=== PATIENT | female | born 1995 | race Caucasian/White ===

== ENCOUNTER 2020-06-24 01:50 | Inpatient (IN) | payer OTHER, SELFPAY ==
[2020-06-24] VITALS (203 sets, daily range): BP systolic 82–148; BP diastolic 49–115; PULSE 32–171; RESP 16; TEMP 36.3–37.1; O2SAT 86–100; BMI 44.8
--- NOTE | 2020-06-24 01:50 | LDADM ---
This patient, Tari Jaramillo, was admitted to Labor/Delivery/Recovery 105 on 06/24/20 at 01:50. Plans for labor, pain management and were discussed with patient. Patient/family oriented to hospital policies and general routines including ID bracelet, bed and alarms, visiting hours, pain management, procedures, bathroom and other care routines, personal items, smoking policy, room service/diet and guest tray routines, infant security routines, and visiting hours. Patient/Family are encouraged to report perceived risks to care and to ask questions if they do not understand what they are told or what they should do. See OBIX for further documentation.
[2020-06-24] MEDS: LACTATED RINGERS 1,000 ML 125 ML IV CONT ×3 (02:29→04:25)
[2020-06-24 02:31] LABS: Basophils Percent Auto 0.2 % (0.2-1.2); Eosinophils Percent Auto 0.3 % (0-4.4); Hematocrit 37.6 % (37.0-47.0); Hemoglobin 12.6 g/dL (12.0-15.0); Immature Granulocyte Absolute 0.13 K/mm3 (0.00-0.031); Immature Granulocyte Percent A 1.1 % (0-0.5); Lymphocytes Percent Auto 20.6 % (18.3-44.2); Mean Corpuscular HGB Conc 33.5 g/dl (32-36); Mean Corpuscular Hemoglobin 28.3 pg (26-34); Mean Corpuscular Volume 84.5 fl (80-100); Mean Platelet Volume 11.5 fl (7.4-10.4); Monocytes Absolute Auto 0.9 K/mm3 (0.1-0.6); Monocytes Percent Auto 7.6 % (2.6-8.5); Neutrophils Absolute Auto 8.5 K/mm3 (1.3-6.7); Neutrophils Percent Auto 70.2 % (45.5-73.1); Platelet Count Result 189 k/mm3 (150-375); Red Blood Count 4.45 M/mm3 (4.2-5.4); Red Cell Distribution Width 14.2 % (11.5-14.5); White Blood Count 12.1 K/mm3 (4.5-10.0)
--- NOTE | 2020-06-24 03:05 | WPDANESEPP ---
Anes - Eval Pre Procedure Procedure: labor epidural Date/Time: 06/24/20 03:05 Surgeon: randolph Pre Op Diagnosis: SROM Patient Data Age: 25 Gender: F Height: 1.68 m Weight: 126 kg Last Vital Signs Pulse 96 06/24/20 03:02 BP 99/79 L 06/24/20 03:02 Allergies Allergy/AdvReac Type Severity Reaction Status Date / Time hepatitis B virus vaccine Allergy Fever Verified 06/13/20 13:39 Home Medications Medication Instructions Recorded Confirmed Type PNV cmb#95-ferrous fumarate-FA 1 tablet PO DAILY 06/13/20 06/24/20 History [] Laboratory Tests 06/24/20 06/24/20 02:26 02:26 WBC 12.1 K/mm3 H K/mm3 (4.5-10.0) RBC 4.45 M/mm3 M/mm3 (4.2-5.4) Hgb 12.6 g/dL g/dL (12.0-15.0) Hct 37.6 % % (37.0-47.0) MCV 84.5 fl fl (80-100) MCH 28.3 pg pg (26-34) MCHC 33.5 g/dl g/dl (32-36) RDW 14.2 % % (11.5-14.5) Plt Count 189 k/mm3 k/mm3 (150-375) MPV 11.5 fl H fl (7.4-10.4) Immature Gran % (Auto) 1.1 % H % (0-0.5) Neut % (Auto) 70.2 % % (45.5-73.1) Lymph % (Auto) 20.6 % % (18.3-44.2) [place] % (Auto) 7.6 % % (2.6-8.5) Eos % (Auto) 0.3 % % (0-4.4) Baso % (Auto) 0.2 % % (0.2-1.2) Lymph # (Auto) 2.50 K/mm3 K/mm3 (0.9-3.2) [place] # (Auto) 0.9 K/mm3 H K/mm3 (0.1-0.6) Eos # (Auto) 0.0 K/mm3 K/mm3 (0-0.3) Baso # (Auto) 0.0 K/mm3 K/mm3 (0.0-0.1) Abs Immat Gran (auto) 0.13 K/mm3 H K/mm3 (0.00-0.031) Absolute Neuts (auto) 8.5 K/mm3 H K/mm3 (1.3-6.7) Absolute Nucleated RBC 0.0 K/mm3 K/mm3 (0.0-0.012) Nucleated RBC % 0.0 % % (0.0-0.2) RPR Pending Patient hx anesthesia problems: none Family hx anesthesia problems: none [facility] Family History Family History Other No problems noted. Sibling Heart valve replaced Sibling Hypertension Social History Social History Smoking status: Never smoker Substance use: never Gender identity (if verbalized by the patient): Female Spiritual care concerns: No Exam Day of Procedure 06/24/20 03:05
[2020-06-24] MEDS: OXYTOCIN 30 UNITS/NS 500 ML 30 UNITS/500 ML BAG IV CONT (07:45)
--- NOTE | 2020-06-24 07:54 | WPDOBADMIT ---
Obstetrics - Admit Note Admission Note: G1 here in active labor. VSS Pt comfortable with epidural Cervix 9cm. Anticipate . record reviewed. No pertinent additions to the history and/or any subsequent changes in the physical findings that are not consistent with the expected course of the were found. Additions to the history and/or subsequent changes in the physical findings follow. None.
[2020-06-24] MEDS: OXYTOCIN 30 UNITS/NS 500 ML 30 UNITS/500 ML BAG 125 UNITS IV CONT (13:01)
--- NOTE | 2020-06-24 13:06 | P.PCNOB_ITS ---
OB - Delivery Note Procedure Delivery date: 06/24/20 Procedure: Intrapartal events: None Induction method: none Delivery augmentation: pitocin Delivery monitor: external FHT and external uterine Laceration Description: Perineal - 2nd Degree Estimated blood loss (mL): 440 Anesthesia type: Epidural [place] Baby Date of : 06/24/20 Time of : 12:27 Weeks of gestation at delivery: 37 gender: Female presentation: vertex position: Right Occiput Transverse Placenta delivery description: Spontaneous cord vessel description: 3 Vessels score one minute: 9 score five minutes: 9 Narrative: Delivery per Z Due SNM. Cord gasses collected and handed off to nursery staff.
[2020-06-24 14:20] LABS: Rapid Plasma Reagin Non-Reactive (NonReactive)
[2020-06-24] MEDS: IBUPROFEN 600 MG TABLET PO ×2 (14:21→20:15)
--- NOTE | 2020-06-24 17:22 | PC.NURSE ---
1526 Mother admitted to room 283 per wheelchair from labor and delivery after vaginal delivery today at 1227 with Dave KING for Dr. Goodman. Mother is a and is choosing to breast and bottle feed her baby. FOB present. When nurse came to room, mother had positioned herself for sleep. she did not engage in conversation with nurse; only answered questions. Mother allowed to rest; heating pad provided for her c/o lower back pain. VSS and assessment WNL.
--- NOTE | 2020-06-24 18:35 | PC.NURSE ---
1745 mother awake; states feels better; able to walk to bathroom, void and sit on sofa; Seems happier and to feel much better.
[2020-06-25] MEDS: IBUPROFEN 600 MG TABLET PO ×3 (05:16→19:40)
--- NOTE | 2020-06-25 08:17 | PM.OBPNVD ---
OB - PN: Subj Subjective Date/time seen: 06/25/20 08:17 Patient comments: no complaints baby status: doing well OB - PN: Obj Data Labs CBC & Chem 7: 06/24/20 02:26 Labs: Laboratory Results - last 24 hr 06/24/20 02:26 RPR Non-reactive OB - PN A/P Plan day: 1 Plan: routine care Comments: Awaiting lab results. Time Spent With Patient Time: Total time spent is greater than 50% in coordination of care (as documented) at patient's floor/unit and/or counseling patient: Time with patient: less than 15 minutes Review of Systems Review of Systems: All systems reviewed & are unremarkable except as noted in HPI and below Exam Narrative: Exam Narrative: Fundus firm and vaginal flow controlled. No lower ext redness, warmth, or edema. Negative homans. Const: General: comfortable Chest: Breast/axilla inspection: normal inspection of the breasts Resp: Effort & Inspection: normal respiratory effort Cardio: Rate: regular rate GI: GI Palp: Yes Soft to palpation Psych: Appearance: grossly normal Affect: normal affect Attitude: cooperative Thought content: Yes Normal thought content present Judgement: Good judgement present (Psych)
[2020-06-25 08:20] VITALS: BP 120/75; PULSE 116; RESP 18; TEMP 36.5; O2SAT 97
--- NOTE | 2020-06-25 08:30 | PC.NURSE ---
Consulted with patient, mother reports she has been bottle feeding during the night and would like to attempt to breast. Discussed and the 37 4/7 week infant, establishing may have its own unique set of circumstances due to their immaturity. infants may be less alert, have less stamina and may have issues with latch, suck and swallow. With the possible inability to have a vigorous suck swallow, infants may not be adequately stimulating mother and/or able to have adequate milk transfer. Pumping should be considered for additional stimulation and to offer EBM as part of supplement if needed. Reviewed infant feeding cues, frequencies, duration of feedings, feeding elimination flow sheet, and signs of adequate intake. Demonstrated stimulation techniques to wake infant for feeding. Assisted with infant to breast. Reviewed positioning/alignment cross cradle, holding breast in U hold and guided asymmetrical latch on. was sleepy and made week attempts to latch. Once latched did not suckle. Suggested mother continue to allow infant to make attempts for stimulation of milk supply. Mother will attempt for 10 minutes then follow with formula. Instructed mother to call out for RN assistance if she is unable to latch infant for feeding or she has discomfort with nursing. Instructed feeding should be initiated three hours from start of last feeding or if feeding cues are noted before. Mother voiced understanding of information shared. Suggested mother initiate supplementation.
[2020-06-25 08:56] LABS: Hematocrit 30.1 % (37.0-47.0); Hemoglobin 9.8 g/dL (12.0-15.0)
--- NOTE | 2020-06-25 09:39 | WPDANLDPN2 ---
Anes-Prog Note L&D Date/Time: 06/25/20 09:39 Comfortable throughout: labor and delivery Epidural/Spinal procedure site: clean & non-tender Neuro status: Neuro function grossly intact. Cardiovascular status: normal Respiratory status: normal Airway patency: baseline Mental status: baseline Post-Op hydration status: normal Vital Signs: Last Vital Signs Temp 36.5 C 06/25/20 08:20 Pulse 116 H 06/25/20 08:20 Resp 18 06/25/20 08:20 BP 120/75 06/25/20 08:20 Pulse Ox 97 06/25/20 08:20 Pain score (VAS): 0 I/O: Intake & Output 06/24/20 06/25/20 06/25/20 23:59 07:59 15:59 Intake Total 500 Balance 500 Post-procedural complaints: none Patient feedback: Patient satisfied with anesthetic care.
[2020-06-25] MEDS: MULTIVIT/MIN/PREN/FOL AC/IRON TABLET 1 TAB PO (12:07)
[2020-06-25] MEDS: DOCUSATE SODIUM 100 MG CAPSULE PO ×2 (12:07→17:04)
[2020-06-25] MEDS: POLYSACCHARIDE IRON COMPLEX 150 MG CAPSULE PO ×2 (12:07→17:04)
[2020-06-25] MEDS: ACETAMINOPHEN 325 MG TABLET 650 MG PO (17:04)
[2020-06-25 19:40] VITALS: BP 117/66; PULSE 99; RESP 16; TEMP 37; O2SAT 98
[2020-06-26 07:35] VITALS: BP 127/80; PULSE 102; RESP 16; TEMP 36.7; O2SAT 100
--- NOTE | 2020-06-26 07:46 | P.PNOB_ITS ---
OB - PN: Subj Subjective Date/time seen: 06/26/20 07:46 Patient comments: no complaints baby status: doing well OB - PN: Obj Data Labs CBC & Chem 7: 06/25/20 08:32 Labs: Laboratory Results - last 24 hr 06/25/20 08:32 Hgb 9.8 L Hct 30.1 L OB - PN A/P Plan day: 2 Plan: discharge home Time Spent With Patient Time: Total time spent is greater than 50% in coordination of care (as docum ented) at patient's floor/unit and/or counseling patient: Review of Systems Review of Systems: All systems reviewed & are unremarkable except as noted in HPI and below Exam Const: General: cooperative Psych: Attitude: cooperative Judgement: Good judgement present (Psych)
[2020-06-26] MEDS: DOCUSATE SODIUM 100 MG CAPSULE PO (07:58)
[2020-06-26] MEDS: IBUPROFEN 600 MG TABLET PO (07:58)
[2020-06-26] MEDS: POLYSACCHARIDE IRON COMPLEX 150 MG CAPSULE PO (07:58)
[2020-06-26] MEDS: MULTIVIT/MIN/PREN/FOL AC/IRON TABLET 1 TAB PO (07:58)
--- NOTE | 2020-06-26 09:45 | PC.NURSE ---
Mother plans to pump and bottle feed. Mother is pumping regularly without difficulties/discomfort. She is feeding as required and waking to feed if needed. Infant is currently meeting outcomes for weight, output, jaundice and feeding frequencies. Mother states she feels confident to continue current plan to pump and bottle feed at home. Mother has a new double electric Medela pump. Discussed when to increase feeding amounts by satisfaction. Reviewed transition to breast milk, signs of adequate intake, and engorgement/relief. Instructed to call ICP if intake/output less than required. Reviewed regular medications mother is taking. Information provided per Shari. Reviewed community resources on the [employer] website and in the Mom/Baby guide. Information on outpatient services provided. Mother has no further questions at this time.
[2020-06-27 08:48] VITALS: BP 127/89; PULSE 100; RESP 20; TEMP 37.2; O2SAT 100
--- NOTE | 2020-07-13 20:44 | PM.OBDSVD ---
DS: Admitting Diagnosis Admitting Diagnosis Admitting Diagnosis: SROM DS: Discharge Diagnosis Discharge Diagnosis (1) Vaginal delivery: Code(s): O80 - Encounter for full-term uncomplicated delivery Status: Acute OB - DS: Summary OB Procedures : None OB Procedures Intrapartum: Spontaneous Vag Delivery OB Procedures: : None Time Spent with Patient Time attestation: Total time spent providing and/or coordinating discharge services: DS: Data Data Completed and Pending Completed studies during hospitalization: Pending at discharge 06/24/20 13:48 Surgical [PTH] Routine Discharge Plan Discharge Attending physician on discharge: Matt Goodman Consulting providers: Robby Zamorano ; Kimberly Schmitt ; Elizabeth Dela Cruz Discharging Clinician: Elizabeth Dela Cruz Patient Disposition: Home, Self-Care Activity: pelvic rest Diet: regular Discharge Instructions: Education: Mom and Baby Guide Given to: Mother Follow-Up: Call your delivering provider's office for an appointment to be seen in: 4 Weeks Mom and baby should come to the [facility] for the follow-up appointment. Appointment Date/Time: June 27, 2020 at 9:00 am What to expect at your follow-up visit: Physical Assessment Call [phone] if you are unable to keep your appointment time. BREAST CARE: * Wear a snug supportive bra. * For engorgement discomfort: Breast Feeding: * Apply warm moist washcloths * Express milk as needed to relieve engorgement * Wear loose clothing * For sore nipples: * Identify correct latch-on * Apply warm moist washcloths before and after nursing * Air dry nipples after nursing * May apply Lansinoh cream to nipples PERINEAL CARE: * Until bleeding stops, use your franck bottle after urinating * Change your pad frequently throughout the day * You may take sitz baths several times a day (fill your bathtub with warm water and soak for 20 minutes.) Do NOT bathe in the water * No tub baths until seen by your physician - You may shower ACTIVITY: * Rest as much as possible. * Do not exercise or lift anything heavier than your baby (such as laundry or other children.) * Avoid stairs or driving as much as possible. * Do not put anything into the vagina. No douching, tampons, or sexual activity until seen by physician. NOTIFY PHYSICIAN IF YOU HAVE ANY QUESTIONS OR IF ANY OF THE FOLLOWING SYMPTOMS OCCUR: * If your stitches become red, swollen, or more painful than what you have experienced in the hospital. * If your vaginal bleeding becomes foul smelling. * If your vaginal bleeding becomes more heavy than a period or if your bleeding changes from pink to bright red. However, you may pass an occasional walnut-sized clot once or twice for the first week . * If you experience a sharp, shooting pain in you calves. * If you discover a hard, reddened area on your breast or if you experience flu-like symptoms. DIET: * Eat regular, well-balanced meals. * Drink plenty of fluids daily. If , drink to thirst. Patient Instructions: Antibiotic Form Stand Alone Forms: General Discharge Information Follow-up/Referrals: Matt Goodman MD [Physician] - 4 Weeks Discharge Medications: New polysaccharide iron complex 150 mg iron Capsule 150 mg PO BIDWM Qty: 60 RF: 0 Continued PNV cmb#95-ferrous fumarate-FA [] 28 mg iron- 800 mcg Tablet 1 tablet PO DAILY RF: 0 Date of admission: 06/24/20 01:50 Primary Care Provider: Shanelle,Denisa Griffiths Admitting Provider: Matt Goodman Attending physician on admission: Matt Goodman Condition: Stable
== END 2020-06-26 10:14 | disposition home or self-care (01) | DRG 807 ==
LOC: ANHLDR 02:46 → ANHOB2 15:30
PROVIDERS: Advanced Practice Midwife; Admitting Provider Obstetrics & Gynecology; PCP Family Medicine; Visit Provider Obstetrics & Gynecology
DX: O76 Abnormality in fetal heart rate and rhythm complicating labor and delivery (principal); Z37.0 Single live birth; O70.1 Second degree perineal laceration during delivery; Z3A.37 37 weeks gestation of pregnancy
CPT/HCPCS: 36415; 85014; 85018; 85025; 86592; 86850; 86900; 86901; 88307; A9270; J2590; J2795; J7120

== ENCOUNTER → 2021-04-26 11:19 | Outpatient (CLI) | payer OTHER, SELFPAY ==
--- NOTE | ~2021-04-26 | XR_ITS ---
EXAMINATION: XR knee RT min 4V DATE: 04/26/2021 12:08 INDICATION: Right knee pain. TECHNIQUE: 4 views of right knee including standing views were obtained. COMPARISON: None. FINDINGS: Bone alignment is normal. No fracture. Joint spaces are normal. There is a small knee joint effusion. IMPRESSION: 1. Small right knee joint effusion. Reviewed, dictated and finalized at location A.
== END ==
PROVIDERS: PCP Family Medicine; Visit Provider Family Medicine
DX: M25.461 Effusion, right knee (principal)
CPT/HCPCS: 73564

== ENCOUNTER 2021-09-01 14:50 | Outpatient (CLI) | payer OTHER, SELFPAY ==
--- NOTE | ~2021-09-01 | US_ITS ---
EXAMINATION: US venous doppler LE RT DATE: 09/01/2021 15:15 INDICATION: Right lower limb pain TECHNIQUE: Morin scale images without and with compression and Doppler images of the right lower extre mity veins were obtained. COMPARISON: None FINDINGS: The right common femoral vein, profunda femoral vein, femoral vein, popliteal vein, peronea l trunk, posterior tibial veins, and greater saphenous vein are patent. IMPRESSION: 1. Patent right lower extremity veins. No evidence of deep venous thrombosis. Reviewed, dictated and finalized at location F. ATOLOGIST
== END 2021-09-01 14:51 | disposition home or self-care (01) ==
LOC: ANHIMG 14:54
PROVIDERS: PCP Family Medicine; Visit Provider Nurse Practitioner Family
DX: M79.604 Pain in right leg (principal)
CPT/HCPCS: 93971

== ENCOUNTER 2021-12-28 14:00 | Outpatient (CLI) | payer OTHER, SELFPAY ==
--- NOTE | ~2021-12-28 | US_ITS ---
US OB transvaginal DATE: 12/28/2021 14:40 INDICATION: Antepartum hemorrhage TECHNIQUE: Real-time imaging via transvaginal approach COMPARISON: None FINDINGS: The uterus measures 9.2 cm height, up to 5 cm anteroposterior dimension. The central endometrial echo complex measuring up to 7 mm AP dimension. No intrauterine gestational s ac is identified. Left ovary measures 2 x 2 0.3 x 3.5 cm. Up to 11 x 18 mm left ovarian cyst Tubular fluid distended structure measuring up to 11 mm diameter suggests right hydrosalpinx. Right ovary measures 2.4 x 2.6 x 2.6 cm, with vascular flow.. No pelvic mass or abnormal free pelvic fluid collection is identified. IMPRESSION: Suggestion of right hydrosalpinx 11 x 18 mm left ovarian cyst Reviewed, dictated and finalized at Location A. Reviewed, dictated and finalized at location A.
== END 2021-12-28 14:01 | disposition home or self-care (01) ==
LOC: ANHIMG 14:09
PROVIDERS: PCP Family Medicine; Visit Provider Family Medicine
DX: N83.202 Unspecified ovarian cyst, left side (principal)
CPT/HCPCS: 76817

== ENCOUNTER 2021-12-29 05:38 | Emergency (ER) | payer OTHER, SELFPAY ==
--- NOTE | ~2021-12-29 | US_ITS ---
EXAMINATION: US OB <=14 wk fetus w TV DATE: 12/29/2021 08:03 INDICATION: Right adnexal pain. TECHNIQUE: Real-time transabdominal and transvaginal pelvic ultrasound was performed. COMPARISON: Ultrasound 12/28/2021. FINDINGS: TRANSABDOMINAL ULTRASOUND: The uterus measures 9.7 x 5.4 x 4.7 cm. TRANSVAGINAL ULTRASOUND: There is no visible intrauterine gestational sac. The endometrial complex me asures 6 mm in thickness. The right ovary measures 2.8 x 2.4 x 2.0 cm. The left ovary measures 2.3 x 1.9 x 2.9 cm. There is normal vascular flow in the ovaries. There is a tubular structure in right adn exa. There is no free fluid in the pelvis. IMPRESSION: 1. No visible intrauterine gestational sac, which may be normal in early . Spontaneous abor tion and ectopic are not excluded. Serial beta-hCGs are recommended. 2. Tubular structure in right adnexa again seen, likely hydrosalpinx. Reviewed, dictated and finalized at location A. IMPRESSION: 1. No visible intrauterine gestational sac, which may be normal in early pregn alonzo. Spontaneous and ectopic are not excluded. Serial beta- hCGs are recommended. 2. Tubular structure in right adnexa again seen, likely hydrosalpinx.
[2021-12-29 05:45] VITALS: BP 157/109; PULSE 99; RESP 14; TEMP 36.7; O2SAT 100
--- NOTE | 2021-12-29 06:00 | ED.ABDPAIN ---
HPI - Abdominal Pain General Chief Complaint: Abdominal Pain <Sebastian Justo Odom III, DO - Last Filed: 12/29/21 07:14> Stated Complaint: RLQ pain, possible ectopic <Sebastian Justo Odom III, DO - Last Filed: 12/29/21 07:14> Time Seen by Provider: 12/29/21 05:46 <Sebastian Justo Odom III, DO - Last Filed: 12/29/21 07:14> Source: patient <Sebastian Justo Odom III, DO - Last Filed: 12/29/21 07:14> Mode of arrival: ambulatory <Sebastian Justo Odom III, DO - Last Filed: 12/29/21 07:14> Limitations: no limitations <Sebastian Justo Odom III, DO - Last Filed: 12/29/21 07:14> History of Present Illness HPI narrative: Pt presents with complaints of right adnexal pain this morning. Pt is 6 weeks by dates and started having vaginal bleeding yesterday and had outpatient pelvic ultrasound. Pt wasn't having much pain yesterday but developed right adnexal pain this morning which woke her up and says bleeding is worse as well. <Sebastian Justo Odom III, DO - Last Filed: 12/29/21 07:14> MD elicited complaint: abdominal pain <Sebastian Justo Odom III, DO - Last Filed: 12/29/21 07:14> Pain Consistency: constant <Sebastian Justo Odom III, DO - Last Filed: 12/29/21 07:14> Location: RLQ <Sebastian Justo Odom III, DO - Last Filed: 12/29/21 07:14> Severity: severe <Sbeastian Justo Odom III, DO - Last Filed: 12/29/21 07:14> Quality: dull <Sebastian Justo Odom III, DO - Last Filed: 12/29/21 07:14> Radiation: none <Sebastian Justo Odom III, DO - Last Filed: 12/29/21 07:14> Migration to: no migration <Sebastian Justo Odom III, DO - Last Filed: 12/29/21 07:14> Exacerbating factors: nothing <Sebastian Justo Odom III, DO - Last Filed: 12/29/21 07:14> Relieving factors: nothing <Sebastian Justo Odom III, DO - Last Filed: 12/29/21 07:14> Related Data Home Medications: Home Medications Medication Instructions Recorded Confirmed PNV cmb#95-ferrous fumarate-FA 1 tablet PO DAILY 06/13/20 06/24/20 [] <Sebastian Justo Odom III, DO - Last Filed: 12/29/21 07:14> Allergies/Adverse Reactions: Allergies Allergy/AdvReac Type Severity Reaction Status Date / Time hepatitis B virus vaccine Allergy Fever Verified 12/29/21 05:50 <Sebastian Justo Odom III, DO - Last Filed: 12/29/21 07:14> Review of Systems Review of Systems: All systems reviewed & are unremarkable except as noted in HPI and below <Sebastian Justo Odom III, DO - Last Filed: 12/29/21 07:14> PMFSH Family History Family History: Family History Other No problems noted. Sibling Heart valve replaced Sibling Hypertension <Sebastian Justo Odom III, DO - Last Filed: 12/29/21 07:14> Social History Social History: Social History Smoking status: Never smoker Substance use: never Gender identity (if verbalized by the patient): Female Spiritual care concerns: No <Sebastian Justo Odom III, DO - Last Filed: 12/29/21 07:14> Exam Const: General: no acute distress <Sebastian Justo Odom III, DO - Last Filed: 12/29/21 07:14> Orientation/consciousness: patient oriented x3 <Sebastian Justo Odom III, DO - Last Filed: 12/29/21 07:14> Resp: Effort & Inspection: normal respiratory effort <Sebastian Justo Odom III, DO - Last Filed: 12/29/21 07:14> Auscultation: clear to auscultation bilaterally <Sebastian Justo Odom III, DO - Last Filed: 12/29/21 07:14> Cardio: Rate: regular rate <Sebastian Justo Odom III, DO - Last Filed: 12/29/21 07:14> Rhythm: regular rhythm <Sebastian Justo Odom III, DO - Last Filed: 12/29/21 07:14> GI: GI Palp: Yes Soft to palpation and Yes Tenderness to palpation present (GI) (tender right adnexa) <Sebastian Kemp Odom III, DO - Last Filed: 12/29/21 07:14> : General: Yes no CVA tenderness <Sebastian Kemp Odom III, DO - Last Filed: 12/29/21 07:14> Skin: General skin exam: normal color <Sebastian Kemp Odom III, DO - Last Filed: 12/29/
[2021-12-29] MEDS: SODIUM CHLORIDE 0.9% IV 1,000 ML 999 ML IV CONT (06:12)
[2021-12-29] MEDS: fentaNYL CITRATE INJ (*CRX) 100 MCG/2 ML VIAL 25 MCG IV PUSH (06:14)
[2021-12-29 06:15] LABS: Basophils Percent Auto 0.3 % (0.2-1.2); Eosinophils Absolute Auto 0.2 K/mm3 (0-0.3); Eosinophils Percent Auto 1.3 % (0-4.4); Hematocrit 44.2 % (37.0-47.0); Hemoglobin 14.1 g/dL (12.0-15.0); Immature Granulocyte Absolute 0.04 K/mm3 (0.00-0.031); Immature Granulocyte Percent A 0.3 % (0-0.5); Lymphocytes Absolute Auto 3.23 K/mm3 (0.9-3.2); Lymphocytes Percent Auto 28.2 % (18.3-44.2); Mean Corpuscular HGB Conc 31.9 g/dl (32-36); Mean Corpuscular Hemoglobin 27.6 pg (26-34); Mean Corpuscular Volume 86.5 fl (80-100); Mean Platelet Volume 9.6 fl (7.4-10.4); Monocytes Absolute Auto 0.9 K/mm3 (0.1-0.6); Monocytes Percent Auto 7.4 % (2.6-8.5); Neutrophils Absolute Auto 7.1 K/mm3 (1.3-6.7); Neutrophils Percent Auto 62.5 % (45.5-73.1); Platelet Count Result 381 k/mm3 (150-375); Red Blood Count 5.11 M/mm3 (4.2-5.4); Red Cell Distribution Width 13.2 % (11.5-14.5); White Blood Count 11.4 K/mm3 (4.5-10.0)
[2021-12-29 06:26] LABS: Partial Thromboplastin Time 33.3 SECONDS (22.3-36.8); Prothrombin Time 13.2 Seconds (11.1-14.7)
[2021-12-29 06:27] LABS: Alanine Aminotransferase 22 U/L (4-35); Albumin Level 4.8 g/dL (3.5-5.1); Alkaline Phosphatase 75 U/L (38-126); Anion Gap 11 mmol/L (8-16); Aspartate Amino Transferase 28 U/L (14-36); Bilirubin,Total 0.5 mg/dL (0.2-1.3); Blood Urea Nitrogen 9 mg/dL (7-17); Calcium 9.1 mg/dL (8.4-10.2); Carbon Dioxide 25 mmol/L (22-30); Chloride 105 mmol/L (98-107); Estimated CRCL calculation 99 ml/min; Estimated Glomerular Filt Rate > 60; Glucose 107 mg/dL (65-110); Sodium 141 mmol/L (137-145)
[2021-12-29 06:31] VITALS: BP 142/102; PULSE 86; RESP 14; O2SAT 99
[2021-12-29 06:42] LABS: Beta HCG Quantitative 2.59 mIU/ML
[2021-12-29 07:03] VITALS: BP 135/102; PULSE 90; RESP 15; O2SAT 96
[2021-12-29 08:29] LABS: Add Urine Microscopic? YES; Appearance Urine Cloudy (Clear); Bacteria Urine Trace /hpf; Bilirubin Urine Negative (Negative); Blood Urine 3+ (Negative); Color Urine Yellow (Yellow); Glucose Urine UA Negative (Negative); Ketones Urine Negative (Negative); Leukocyte Esterase Ur 1+ LEU/UL (Negative); Mucus Urine Rare /lpf; Nitrate Urine Negative (Negative); Protein Urine Negative (Negative); RBC Urine >75 /hpf (0-2); Squamous Epithelial Cell Urine Rare /hpf (Few); Urobilinogen Urine Negative mg/dL (<2.0); WBC Urine 16-20 /hpf
[2021-12-29 09:11] VITALS: BP 120/93; PULSE 86; RESP 16; O2SAT 100
== END 2021-12-29 09:11 | disposition home or self-care (01) ==
PROVIDERS: Emergency Medicine; Emergency Provider Emergency Medicine; PCP Family Medicine
DX: O23.521 Salpingo-oophoritis in pregnancy, first trimester (principal); O23.41 Unspecified infection of urinary tract in pregnancy, first trimester; Z3A.01 Less than 8 weeks gestation of pregnancy
CPT/HCPCS: 36415; 76801; 76817; 80053; 81001; 84702; 85025; 85610; 85730; 86850; 86900; 86901; 87086; 87088; 96361; 96374; 99284; J3010; J7030

== ENCOUNTER 2023-03-27 00:01 | Inpatient (IN) | payer OTHER, SELFPAY ==
[2023-03-27] VITALS (127 sets, daily range): BP systolic 89–157; BP diastolic 37–125; PULSE 29–168; RESP 16–18; TEMP 36.2–36.5; O2SAT 79–100; BMI 45.3
--- NOTE | 2023-03-27 00:56 | LDADM ---
This patient, Tari Jaramillo, was admitted to Labor/Delivery/Recovery 104 on 03/27/23 at 00:01. Plans for labor, pain management and were discussed with patient. Patient/family oriented to hospital policies and general routines including ID bracelet, bed and alarms, visiting hours, pain management, procedures, bathroom and other care routines, personal items, smoking policy, room service/diet and guest tray routines, security routines, and visiting hours. Patient/Family are encouraged to report perceived risks to care and to ask questions if they do not understand what they are told or what they should do. See OBIX for further documentation.
[2023-03-27 02:05] LABS: Basophils Percent Auto 0.3 % (0.2-1.2); Eosinophils Absolute Auto 0.1 K/mm3 (0-0.3); Eosinophils Percent Auto 0.6 % (0-4.4); Hematocrit 36.7 % (37.0-47.0); Immature Granulocyte Absolute 0.12 K/mm3 (0.00-0.031); Lymphocytes Absolute Auto 2.81 K/mm3 (0.9-3.2); Lymphocytes Percent Auto 22.5 % (18.3-44.2); Mean Corpuscular HGB Conc 32.7 g/dl (32-36); Mean Corpuscular Hemoglobin 27.8 pg (26-34); Mean Platelet Volume 11.1 fl (7.4-10.4); Monocytes Percent Auto 7.6 % (2.6-8.5); Neutrophils Absolute Auto 8.5 K/mm3 (1.3-6.7); Platelet Count Result 209 k/mm3 (150-375); Red Blood Count 4.32 M/mm3 (4.2-5.4); Red Cell Distribution Width 14.6 % (11.5-14.5); White Blood Count 12.5 K/mm3 (4.5-10.0)
[2023-03-27] MEDS: LACTATED RINGERS 1,000 ML 125 ML IV CONT ×3 (02:10→10:33)
[2023-03-27] MEDS: OXYTOCIN 30 UNITS/NS 500 ML 30 UNITS/500 ML BAG IV CONT (02:10)
--- NOTE | 2023-03-27 03:46 | WPDANESEPPF ---
Anes - Initial Pre Proc Eval Procedure: Labor epidural Date/Time: 03/27/23 03:46 Surgeon: Minor Upton MD Pre Op Diagnosis: Labor pain Pre Op Diagnosis: IOL Patient Data Age: 28 Gender: F Height: 1.68 m Weight: 127.27 kg Last Vital Signs Pulse 100 03/27/23 03:31 BP 131/87 03/27/23 03:31 O2 Del Method Room Air 03/27/23 00:56 Allergies Allergy/AdvReac Type Severity Reaction Status Date / Time hepatitis B virus vaccine Allergy Severe Fever Verified 03/23/23 09:51 Home Medications Medication Instructions Recorded Confirmed Type vit no.95-ferrous 1 tablet PO DAILY 06/13/20 03/08/23 History fumarate 28 mg-folic acid 800 mcg tablet () Laboratory Tests 03/27/23 01:45 WBC 12.5 H K/mm3 (4.5-10.0) RBC 4.32 M/mm3 (4.2-5.4) Hgb 12.0 g/dL (12.0-15.0) Hct 36.7 L % (37.0-47.0) MCV 85.0 fl (80-100) MCH 27.8 pg (26-34) MCHC 32.7 g/dl (32-36) RDW 14.6 H % (11.5-14.5) Plt Count 209 k/mm3 (150-375) MPV 11.1 H fl (7.4-10.4) Immature Gran % (Auto) 1.0 H % (0-0.5) Neut % (Auto) 68.0 % (45.5-73.1) Lymph % (Auto) 22.5 % (18.3-44.2) [place] % (Auto) 7.6 % (2.6-8.5) Eos % (Auto) 0.6 % (0-4.4) Baso % (Auto) 0.3 % (0.2-1.2) Lymph # (Auto) 2.81 K/mm3 (0.9-3.2) [place] # (Auto) 1.0 H K/mm3 (0.1-0.6) Eos # (Auto) 0.1 K/mm3 (0-0.3) Baso # (Auto) 0.0 K/mm3 (0.0-0.1) Abs Immat Gran (auto) 0.12 H K/mm3 (0.00-0.031) Absolute Neuts (auto) 8.5 H K/mm3 (1.3-6.7) Absolute Nucleated RBC 0.0 K/mm3 (0.0-0.012) Nucleated RBC % 0.0 % (0.0-0.2) RPR Pending Blood Type O Positive Antibody Screen Negative Patient hx anesthesia problems: none Family hx anesthesia problems: none Results Review: All pre-operative results and documents have been reviewed as part of the pre-operative evaluation. [facility] Past Medical History Medical History Abnormal glucose tolerance in Anxiety and depression History of miscarriage Suppression of menses Vaginal delivery Surgical History Surgical History [place] teeth removed Family History Family History Sibling Heart valve replaced sister Hypertension sister Father Depression Hypertension Mother Breast cancer Grandparent Breast cancer paternal grandmother maternal grandmother Hypertension paternal grandmother Other Hypertension paternal uncle paternal aunt Social History Social History Smoking status: Never smoker Alcohol intake: never Substance use: never Lack of Transportation: No Lack of Food: Never True Current Housing: I Have Housing Concerned About Future Housing: No Difficulty Paying Gas/Electric Bills: No Difficulty Paying for Meds: No Currently Unemployed: No Education: High School Diploma/GED Difficulty w/ Childcare or Family Care: No Living arrangements: with family Occupation/Education: other 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 Informed Consent: The patient's anesthetic plan and its attendant risks and benefits were discussed with the patient/family/POA. Questions were solicited and answers provided to the satisfaction o
--- NOTE | 2023-03-27 06:52 | WPDANESEPN ---
Anes - Epidural Procedure Note Date/Time: 03/27/23 06:52 Consent: I have discussed with the patient/family/POA, the placement of an epidural catheter and the use of epidural narcotic/local anesthetic for labor analgesia and/or postoperative pain management, including associated potential risks, benefits, complications and side effects. I have discussed alternative methods of labor analgesia and/or postoperative pain management. The patient/family/POA, understand(s) and wish(es) to proceed with epidural narcotic/local anesthetic for labor analgesia and/or postoperative pain management. Time-Out: A pre-procedural Time-Out was completed immediately before starting the procedure and confirmed: Patient Identification, Site, Procedure, Patient Position and the Availability of Requisite Equipment. Clinical Indications: Labor pain Epidural Insertion Note Patient position: sitting Skin prep: chlorhexidine and sterile drape Needle: 18g Tuohy-Schliff Catheter: 20g Unstyleted Technique: Loss of resistance. Level of insertion: L3/4 Catheter skin alison (cm): 12 Length in epidural space (cm): 6 Skin anesthesia: lidocaine 1% Test dose: 1.5% Lidocaine with 1:[id number] Epi, negative for subarachnoid Inj and negative for intravascular Inj Time of test dose: 06:42 Observations: tolerated well Complications: none
--- NOTE | 2023-03-27 06:53 | WPDANESEPPF ---
Anes - Initial Pre Proc Eval Procedure: Labor epidural Date/Time: 03/27/23 06:53 Surgeon: Minor Upton MD Pre Op Diagnosis: Labor pain Pre Op Diagnosis: IOL Patient Data Age: 28 Gender: F Height: 1.68 m Weight: 127.27 kg Last Vital Signs Pulse 106 H 03/27/23 06:53 BP 125/67 03/27/23 06:53 Pulse Ox 96 03/27/23 06:50 O2 Del Method Room Air 03/27/23 00:56 Allergies Allergy/AdvReac Type Severity Reaction Status Date / Time hepatitis B virus vaccine Allergy Severe Fever Verified 03/23/23 09:51 Home Medications Medication Instructions Recorded Confirmed Type vit no.95-ferrous 1 tablet PO DAILY 06/13/20 03/27/23 History fumarate 28 mg-folic acid 800 mcg tablet () Laboratory Tests 03/27/23 01:45 WBC 12.5 H K/mm3 (4.5-10.0) RBC 4.32 M/mm3 (4.2-5.4) Hgb 12.0 g/dL (12.0-15.0) Hct 36.7 L % (37.0-47.0) MCV 85.0 fl (80-100) MCH 27.8 pg (26-34) MCHC 32.7 g/dl (32-36) RDW 14.6 H % (11.5-14.5) Plt Count 209 k/mm3 (150-375) MPV 11.1 H fl (7.4-10.4) Immature Gran % (Auto) 1.0 H % (0-0.5) Neut % (Auto) 68.0 % (45.5-73.1) Lymph % (Auto) 22.5 % (18.3-44.2) Hooker % (Auto) 7.6 % (2.6-8.5) Eos % (Auto) 0.6 % (0-4.4) Baso % (Auto) 0.3 % (0.2-1.2) Lymph # (Auto) 2.81 K/mm3 (0.9-3.2) Hooker # (Auto) 1.0 H K/mm3 (0.1-0.6) Eos # (Auto) 0.1 K/mm3 (0-0.3) Baso # (Auto) 0.0 K/mm3 (0.0-0.1) Abs Immat Gran (auto) 0.12 H K/mm3 (0.00-0.031) Absolute Neuts (auto) 8.5 H K/mm3 (1.3-6.7) Absolute Nucleated RBC 0.0 K/mm3 (0.0-0.012) Nucleated RBC % 0.0 % (0.0-0.2) RPR Pending Blood Type O Positive Antibody Screen Negative Patient hx anesthesia problems: none Family hx anesthesia problems: none Results Review: All pre-operative results and documents have been reviewed as part of the pre-operative evaluation. [facility] Past Medical History Medical History Abnormal glucose tolerance in Anxiety and depression History of miscarriage Suppression of menses Vaginal delivery Surgical History Surgical History [place] teeth removed Family History Family History Sibling Heart valve replaced sister Hypertension sister Father Depression Hypertension Mother Breast cancer Grandparent Breast cancer paternal grandmother maternal grandmother Hypertension paternal grandmother Other Hypertension paternal uncle paternal aunt Social History Social History Smoking status: Never smoker Alcohol intake: never Substance use: never Lack of Transportation: No Lack of Food: Never True Current Housing: I Have Housing Concerned About Future Housing: No Difficulty Paying Gas/Electric Bills: No Difficulty Paying for Meds: No Currently Unemployed: No Education: High School Diploma/GED Difficulty w/ Childcare or Family Care: No Living arrangements: with family Occupation/Education: other 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 Informed Consent: The patient's anesthetic plan and its attendant risks and benefits were discussed with the patient/family/POA. Questions were solicited and answers provided to the satisfaction of the patient/family/POA.
--- NOTE | 2023-03-27 07:39 | P.HPUP_ITS ---
History and Physical Update Update Date/Time: 03/27/23 07:39 28-year-old 011 at 39 weeks 0 days who presents for elective induction of labor. Patient reports good movement. She denies any regular contractions, vaginal bleeding, leakage of fluid. Her has been uncom plicated thus far. History and Physical has been reviewed, including an updated exam of the patient. There are NO changes in the patient's condition. Risks, benefits, and alternatives have been discussed and questions answered. Patient agrees to proceed with procedure. A/P: admit to L&D routine admission orders Rh+ GBS neg plan for pitocin IOL AROM this morning with clear fluid continuous EFM
--- NOTE | 2023-03-27 11:26 | PM.OBPRVD ---
OB - Delivery Note Procedure Procedure: Patient pushed for a spontaneous vaginal delivery. The fetus was delivered atraumatically and placed on the maternal abdomen. The cord was clamped and cut after 1 minute of life. The cord was double clamped and cut and a segment of cord was collected for cord gases. Cord blood was collected for blood type and Coomb's testing. The placenta delivered spontaneously and was noted to be intact. The perineum was inspected and there was a 1st degree perineal laceration. The laceration was repaired with 3-0 vicryl in the usual fashion. The uterus was firm and good hemostasis was noted. The patient and fetus were stable in the delivery room. Delivery augmentation: Rupture of Membranes and Pitocin Delivery monitor: External FHT Route of delivery: Episiotomy description: None Delivery repair: vicryl Specimen: No Quantitative Blood Loss (ml): 200 Anesthesia type: Epidural Disposition: Floor () Complications: No immediate complications Baby Date of : 03/27/23 Time of : 11:07 Weeks of gestation at delivery: 39 Infant gender: Female presentation: vertex position: Right Occiput Anterior Placenta delivery description: Spontaneous Cord Vessel Description: 3 Vessels and Around Extremity score one minute: 9 score five minutes: 9 AMG Delivery Billing Delivery Delivery: Delivery Charge
[2023-03-27] MEDS: OXYTOCIN 30 UNITS/NS 500 ML 30 UNITS/500 ML BAG 125 UNITS IV CONT (11:44)
[2023-03-27] MEDS: WITCH HAZEL 40 PADS 1 PAD TOPICAL (13:10)
[2023-03-27] MEDS: IBUPROFEN 600 MG TABLET PO ×2 (13:10→20:55)
[2023-03-27] MEDS: BENZOCAINE 20% AER SPR (*SP) 56 GM CAN 1 SPRAY TOPICAL (13:10)
[2023-03-27 13:50] LABS: Rapid Plasma Reagin Non-Reactive (NonReactive)
--- NOTE | 2023-03-27 13:50 | OBPPTRN ---
Addendum entered by Elizabeth Ferrari RN 03/27/23 15:54: Patient transferred to post room #284 via wheelchair. Support person present. Oriented to unit, room, information board, rooming in, admission packet and security measures. Patient verbalizes understanding. Original Note: Patient transferred to post room # via ( ). Support person present. Oriented to unit, room, information board, rooming in, admission packet and security measures. Patient verbalizes understanding.
[2023-03-27] MEDS: POLYSACCHARIDE IRON COMPLEX 150 MG CAPSULE PO (16:03)
[2023-03-27] MEDS: ACETAMINOPHEN 325 MG TABLET 650 MG PO (16:04)
[2023-03-28] MEDS: ACETAMINOPHEN 325 MG TABLET 650 MG PO ×2 (01:10→09:44)
[2023-03-28 01:12] VITALS: BP 120/80; PULSE 96; RESP 18; TEMP 36.5; O2SAT 96
[2023-03-28 05:00] VITALS: BP 118/75; PULSE 108; RESP 18; TEMP 36.6; O2SAT 95
[2023-03-28] MEDS: IBUPROFEN 600 MG TABLET PO ×2 (05:09→13:57)
[2023-03-28 05:41] LABS: Hematocrit 35.6 % (37.0-47.0); Hemoglobin 11.5 g/dL (12.0-15.0)
--- NOTE | 2023-03-28 07:35 | PM.OBDSVD ---
DS: Admitting Diagnosis Discharge Date 03/28/23 Admitting Diagnosis intrauterine at term DS: Discharge Diagnosis Discharge Diagnosis (1) Supervision of high risk , unspecified, third trimester: Code(s): O09.93 - Supervision of high risk , unspecified, third trimester Status: Acute OB - DS: Summary Hospital Course Hospital Course: 28-year-old who presents for elective induction at 39 weeks. Patient had an uncomplicated induction of labor. Patient pushed for spontaneous vaginal delivery. Her course was uncomplicated. She was discharged home on day 1. OB Procedures : None OB Procedures Intrapartum: Spontaneous Vag Delivery OB Procedures: : None Status at Discharge Functional status at discharge: independent ambulation Overall status at discharge: patient is back to baseline Time Spent with Patient Time attestation: Total time spent providing and/or coordinating discharge services: Time spent: Less than 30 minutes Exam Const: General: comfortable and no acute distress Resp: Effort & Inspection: normal respiratory effort Auscultation: clear to auscultation bilaterally Cardio: Rate: regular rate GI: GI Palp: Yes Soft to palpation Auscultation: normal bowel sounds Other: Fundus firm below umbilicus Psych: Appearance: grossly normal Mental Status: mental status grossly normal Affect: normal affect DS: Data Data Completed and Pending Labs on day of discharge: Labs from last 24 hours 03/28/23 03/27/23 05:21 01:45 Hgb 11.5 L Hct 35.6 L RPR Non-reactive Discharge Plan Discharge Discharging Clinician: Minor Upton Patient Disposition: Home, Self-Care Activity: as tolerated and pelvic rest Diet: regular Patient Instructions: Antibiotic Form, Vaginal Delivery (DC) Stand Alone Forms: General Discharge Information Follow-up/Referrals: Minor Upton MD [Physician] - 4 Weeks Discharge Medications: New acetaminophen 500 mg tablet 500 mg PO Q6H PRN (Reason: pain) Qty: 30 0RF ibuprofen 600 mg tablet 600 mg PO Q6H PRN (Reason: pain) Qty: 30 0RF No Action PNV cmb#95-ferrous fumarate-FA [] 28 mg iron- 800 mcg Tablet 1 tablet PO DAILY Date of admission: 03/27/23 00:01 Primary Care Provider: Shanelle,Denisa Griffiths Admitting Provider: Rex Costello Attending physician on admission: Minor Upton Condition: Stable
--- NOTE | 2023-03-28 07:57 | WPDANLDPN2 ---
Anes-Prog Note L&D Date/Time: 03/28/23 07:57 Comfortable throughout: labor and delivery Neuraxial method: epidural Epidural/Spinal procedure site: tender (mild bruising. soft, not warm to touch. ) Neuro status: Neuro function grossly intact. Cardiovascular status: normal Respiratory status: normal Airway patency: baseline Mental status: baseline Post-Op hydration status: normal Vital Signs: Last Vital Signs Temp 36.6 C 03/28/23 05:00 Pulse 108 H 03/28/23 05:00 Resp 18 03/28/23 05:00 BP 118/75 03/28/23 05:00 Pulse Ox 95 03/28/23 05:00 O2 Del Method Room Air 03/28/23 01:12 Pain score (VAS): 2 I/O: Intake & Output 03/27/23 03/27/23 03/28/23 15:59 23:59 07:59 Intake Total 1500 Output Total 325 Balance 1175 Post-procedural complaints: none Patient feedback: Patient satisfied with anesthetic care.
[2023-03-28 08:20] VITALS: BP 119/84; PULSE 86; RESP 16; TEMP 36.6; O2SAT 100
[2023-03-28] MEDS: DOCUSATE SODIUM 100 MG CAPSULE PO (09:44)
[2023-03-28] MEDS: MEASLES,MUMPS,RUBELLA VACCINE 0.5 ML VIAL SUB-Q (13:31)
[2023-03-29 10:04] VITALS: BP 111/75; PULSE 97; RESP 18; TEMP 36.6; O2SAT 100
== END 2023-03-28 14:30 | disposition home or self-care (01) | DRG 807 ==
LOC: ANHLDR 01:10 → ANHOB2 13:54
PROVIDERS: Admitting Provider Student in an Organized Health Care Education/Training Program; PCP Family Medicine; Visit Provider Student in an Organized Health Care Education/Training Program
DX: O69.82X0 Labor and delivery complicated by other cord entanglement, without compression, not applicable or unspecified (principal); Z37.0 Single live birth; Z3A.39 39 weeks gestation of pregnancy; O70.0 First degree perineal laceration during delivery
CPT/HCPCS: 36415; 85014; 85018; 85025; 86592; 86850; 86900; 86901; 90710; A9270; J2590; J2795; J7120

== ENCOUNTER 2024-11-04 09:59 | Outpatient (CLI) | payer OTHER, SELFPAY | END 2024-11-04 10:00 | disposition home or self-care (01) | PROVIDERS: PCP Nurse Practitioner Family; Visit Provider Nurse Practitioner Family | DX: M79.671 Pain in right foot (principal) | CPT/HCPCS: 73620 ==

== ENCOUNTER 2025-05-07 07:00 | Outpatient (CLI) | payer OTHER, SELFPAY ==
--- NOTE | ~2025-05-07 | MR_ITS ---
EXAMINATION: MR foot RT wo con DATE: 05/07/2025 07:30 INDICATION: Hoang's neuroma TECHNIQUE: Magnetic resonance imaging (MRI) of the right fore/mid foot was performed without intravenous contrast. Sequences included sagittal T1-weighted FSE, sagittal fluid sensitive FSE STIR, coronal PD-weighted FS FSE, coronal T1- weighted FSE, axial PD-weighted FS FSE, and axial PD-weighted FSE. COMPARISON: Right foot radiographs dated 11/04/2024 FINDINGS: Bone alignment is normal. Normal marrow signal throughout with no reactive edema, fracture or pathologic marrow replacing process. Minimal polyarticular osteoarthritis at the first metatarsophalangeal and a few tarsal metatarsal joints. Small joint effusion at the first metatarsophalangeal joint. There is a 9 x 8 x 4 mm ganglion cyst along the dorsal base of the third metatarsal. Small amount of fluid in the intermetatarsal between the heads of the first and second metatarsals which measures 9 x 2 x 10 mm. No evident Hoang's neuroma or other abnormal masses. The visualized portion of the flexor and extensor tendons are normal. Lisfranc ligament complex and the collateral ligament complex at the me tatarsophalangeal and interphalangeal joints are normal. IMPRESSION: 1. No Hoang's neuroma or other abnormal masses. 2. Minimal polyarticular osteoarthritis in the right mid and forefoot with small joint effusion at the first metatarsophalangeal joint. 3. Borderline increased fluid at the first intermetatarsal bursa which could be seen with bursitis. Reviewed, dictated and finalized at location A. IMPRESSION: 1. No Hoang's neuroma or other abnormal masses. 2. Minimal polyarticular osteoarthritis in the right mid and forefoot with smal l joint effusion at the first metatarsophalangeal joint. 3. Borderline increased fluid at the first intermetatarsal bursa which could be seen with bursitis.
== END 2025-05-07 07:01 | disposition home or self-care (01) ==
LOC: MICIMG 07:01
PROVIDERS: PCP Nurse Practitioner Family; Visit Provider Podiatrist Foot & Ankle Surgery
DX: G57.61 Lesion of plantar nerve, right lower limb (principal)
CPT/HCPCS: 73718

== ENCOUNTER 2025-05-18 21:31 | Emergency (ER) | payer OTHER, SELFPAY ==
[2025-05-18 21:42] VITALS: BP 141/94; PULSE 87; RESP 17; TEMP 36.4; O2SAT 100
--- NOTE | 2025-05-18 23:50 | ED_ITS ---
HPI - Extremity Problem General Chief complaint: Extremity Problem,Nontraumatic Stated complaint: Right foot flare up -poss nerve damage Time Seen by Provider: 05/18/25 23:08 History of Present Illness HPI Narrative: Patient is a 30-year-old female who presents emergency department this evening complaining of chronic right foot pain. States that she has been struggling with this foot pain for the past 8 weeks and has followed up with Podiatry with Dr. Javed who ordered an MRI to evaluate for Hoang's neuroma. Patient had the MRI 4 days ago and states that she also had a cortisone shot 8 weeks ago to the right foot which she feels as though it did not improve her symptoms. P atient denies any falls or trauma to the right foot since her MRI [address] States that Dr. Mathew denies did prescribe her medications test with a P but has not been alleviating the symptoms. Admits that she did take a 10 mg THC gummy for pain as well around 5:00 p.m. this evening. Related Data Allergies Allergy/AdvReac Type Severity Reaction Status Date / Time hepatitis B virus vaccine Allergy Severe Fever Verified 05/18/25 21:33 Review of Systems Review of Systems: All systems are reviewed and are negative unless stated otherwise in the HPI. [facility] Past Medical History Medical History Allergies Abnormal glucose tolerance in Suppression of menses Anxiety and depression Hydrosalpinx History of miscarriage Vaginal delivery Surgical History Surgical History [place] teeth removed Family History Family History Sibling Heart valve replaced sister Hypertension sister Depression Anxiety Father Depression Hypertension Mother Breast cancer Grandparent Breast cancer paternal grandmother maternal grandmother Hypertension paternal grandmother Other Hypertension paternal uncle paternal aunt Social History Social History Smoking status: Never smoker Alcohol intake: current Drinks per week: 1 Alcohol use details: Says she drinks 1 drink once in a while. 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 HEENT: PERRL, no rhinorrhea, no post nasal drip, oropharynx clear. Neck: Trachea midline, no JVD, no lymphadenopathy. Cardiovascular: Regular rate and rhythm, no murmurs, rubs or gallops, no peripheral edema. Respiratory: Clear to auscultation bilaterally, no tachypnea, no wheezing, no rhonchi, no rubs, no respiratory distress. Abdomen: Soft, nontender, nondistended, no rebound, no guarding, no peritoneal signs. Musculoskeletal: No joint swelling or deformity, normal muscle tone, tenderness palpation over the right midfoot/metatarsal region, no ecchymosis, swelling, erythema or any evidence of trauma/infection. Skin: No rashes or petechia, no signs of infection. Psychiatric: Alert and oriented, normal behavior and judgment for situation. Neurological: Alert and oriented to person, place, and time. Follows all commands. No focal deficits, speech is clear and fluent. Course Vital Signs Vital signs: Vital Signs Temperature 97.5 F L 05/18/25 21:42 Pulse Rate 87 05/18/25 21:42 Respiratory Rate 17 05/18/25 21:42 Blood Pressure 141/94 H 05/18/25 21:42 Pulse Oximetry 100 05/18/25 21:42 Oxygen Delivery Room Air 05/18/25 21:42 Temperature 97.5 F L 05/18/25 21:42 Pulse Rate 87 05/18/25 21:42 Respiratory Rate 17 05/18/25 21:42 Blood Pressure 141/94 H 05/18/25 21:42 Pulse Oximetry 100 05/18/25 21:42 Oxygen Delivery Room Air 05/18/25 21:42 MDM - Extremity (Nontraumatic) MDM Narrative Medical decision making narrative: The patient was evaluated by myself in the emergency department. History is obtained from patient who is an independent historian and physical exam was performed. External medical records were reviewed at this time. Patient was administered 15 mg of IM Toradol and 7.5-325 mg of oral Brutus at this time for pain. Patient's MRI which she obtained of her right foot 4 days ago was reviewed at this time revealing the following: IMPRESSION: 1. No Hoang's neuroma or other abnormal masses. 2. Minimal polyarticular osteoarthritis in the right mid and forefoot with small joint effusion at the first metatarsophalangeal joint. 3. Borderline increased fluid at the first intermetatarsal bursa which could be seen with bursitis. Patient was informed of these findings at bedside. Recommended resting the right foot, using NSAIDs such as ibuprofen/Aleve/Advil as needed for pain as those are the best types of medications for arthritis/bursitis. Given that the patient has had no trauma to the right foot in the last 4 days since her MRI, no additional imaging was indicated at this time. Differential diagnosis considerations include arthritis, bursitis, Hoang's neuroma. Comorbidities impacting this visit include none. I have evaluated and discussed social determinants of health with the patient that could potentially impact subsequent diagnosis and treatment plans. On repeat assessment of the patient, reevaluation revealed that the patient is doing well and is in no acute distress. Patient symptoms have improved since she arrived to our emergency department. Repeat vital signs were all reviewed and noted to be stable. Differential diagnosis and treatment plan were discussed with the patient at bedside. Patient agrees with discussion and after shared medical decision making agrees with discharge. All questions were answered to the patient's satisfaction. Patient will follow up with podiatry in 3-5 days. Patient was provided with strict return precautions and instructed to return to the emergency department if any new or worsening symptoms develop. The patient was discharged in stable condition. 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 Rest your right foot as much as possible as this will help with your symptoms. Use NSAIDs such as ibuprofen/Aleve/Advil as needed for pain. Return to the ED if any new or worsening symptoms develop. Patient Language: [place] Prescriptions: No Action hydroxyzine HCl 10 mg tablet 10 mg PO TID PRN (Reason: anxiety) Qty: 30 0RF naproxen 500 mg tablet 500 mg PO BID Qty: 30 0RF pantoprazole 40 mg tablet,delayed release (DR/EC) 40 mg PO QHS Qty: 90 1RF trazodone 100 mg tablet 50 mg PO QHS PRN (Reason: insomnia) Qty: 90 1RF sertraline 100 mg tablet 100 mg PO DAILY Qty: 90 1RF Follow-up/Referrals: Shalom Javed Jr., DPM [Physician, Podiatry] - 3 Days Marlen Wong APRN [Primary Care Provider, [facility]] Time of Disposition: 23:22
[2025-05-18] MEDS: KETOROLAC 15 MG/ML VIAL (*BKC) IM (23:54)
[2025-05-18] MEDS: HYDROcodone/acetaminophen (*CRX) 7.5-325 MG TABLET 1 TAB PO (23:54)
[2025-05-19 00:04] VITALS: BP 133/81; PULSE 73; RESP 18; O2SAT 100
== END 2025-05-19 00:05 | disposition home or self-care (01) ==
PROVIDERS: Emergency Provider Emergency Medicine; PCP Nurse Practitioner Family
DX: M19.071 Primary osteoarthritis, right ankle and foot (principal); F41.9 Anxiety disorder, unspecified; F32.A Depression, unspecified
CPT/HCPCS: 96372; 99283; A9270; J1885